=== PATIENT | female | born 1995 | race Caucasian/White ===

== ENCOUNTER → 2017-01-12 | Outpatient (CLI) | payer BC, OTHER ==
[~2017-01-12] VITALS: Ht 170.2 cm; Wt 62.0 kg
[~2017-01-12] MED LIST: PRENATAL TABLE1 EAC3 PO
[2017-01-12 10:45] VITALS: BP 111/56
== END | disposition home or self-care (01) ==
LOC: IVINF 10:00
DX: Z31.82 Encounter for Rh incompatibility status (principal); Z3A.28 28 weeks gestation of pregnancy
CPT/HCPCS: 96372; J2790

== ENCOUNTER 2017-03-25 10:18 | Inpatient (IN) | payer BC, OTHER ==
[~2017-03-25] VITALS: Ht 167.6 cm; Wt 67.5 kg
[2017-03-25 10:42] VITALS: BP 123/76
[2017-03-25 11:43] LABS: EOSINOPHIL (%) 0.4 % (0-5); EOSINOPHIL COUNT 0.1 K/uL (0-0.3); HEMATOCRIT 32.7 % (36.0-46.0); IMMATURE GRANULOCYTE (%) 0.5 % (0.0-0.7); IMMATURE GRANULOCYTE COUNT 0.1 K/uL; INSTRUMENT ABS NEUTROPHIL CT 9.4 K/uL; LYMPHOCYTE COUNT 1.5 K/uL (1.0-2.8); MCH 28.9 PG (29.0-34.0); MCHC 33.3 G/DL (30.0-36.0); MCV 86.7 FL (83-99); MEAN PLAT.VOLUME 10.4 uM^3 (9.5-12.4); MONOCYTE (%) 9.6 % (3-12); MONOCYTE COUNT 1.2 K/uL (0-0.8); NEUTROPHIL (%) 77.3 % (45-76); NEUTROPHIL COUNT 9.4 K/uL (1.8-6.4); PLATELET COUNT 254 K/uL (156-360); RBC DIS.WIDTH-CV 12.6 % (11.8-14.6); RED BLOOD COUNT 3.77 M/uL (3.80-5.20); WHITE BLOOD COUNT 12.1 K/uL (4.1-10.2)
[2017-03-25 14:39] VITALS: BP 111/69
[2017-03-25 15:51] VITALS: BP 118/63
[2017-03-25 17:36] VITALS: BP 118/56
[2017-03-25 22:29] VITALS: BP 122/75
[2017-03-26 05:36] LABS: EOSINOPHIL (%) 1.5 % (0-5); EOSINOPHIL COUNT 0.2 K/uL (0-0.3); HEMATOCRIT 28.8 % (36.0-46.0); IMMATURE GRANULOCYTE (%) 0.3 % (0.0-0.7); INSTRUMENT ABS NEUTROPHIL CT 6.3 K/uL; MCH 28.4 PG (29.0-34.0); MCHC 32.6 G/DL (30.0-36.0); MEAN PLAT.VOLUME 10.7 uM^3 (9.5-12.4); MONOCYTE (%) 12.6 % (3-12); MONOCYTE COUNT 1.2 K/uL (0-0.8); NEUTROPHIL (%) 64.6 % (45-76); NEUTROPHIL COUNT 6.3 K/uL (1.8-6.4); PLATELET COUNT 212 K/uL (156-360); RBC DIS.WIDTH-CV 12.6 % (11.8-14.6); RBC DIS.WIDTH-SD 40.2 % (39-53); RED BLOOD COUNT 3.31 M/uL (3.80-5.20); WHITE BLOOD COUNT 9.7 K/uL (4.1-10.2)
[2017-03-26 07:43] VITALS: BP 115/61
[2017-03-26 11:39] VITALS: BP 120/66
[2017-03-26 15:30] VITALS: BP 120/65
[2017-03-26 16:19] VITALS: BP 128/70
[2017-03-26 22:26] VITALS: BP 132/66
[2017-03-27 03:00] VITALS: BP 133/70
[2017-03-27 07:33] VITALS: BP 128/69
[2017-03-27 11:32] VITALS: BP 123/65
[2017-03-27 14:48] VITALS: BP 118/65
[2017-03-27 23:00] VITALS: BP 126/65
[2017-03-28 07:04] VITALS: BP 114/69
[2017-03-28] MEDS ORDERED: CHROMAGEN,1 CAPSULE PO (10:07)
[2017-03-28] MEDS ORDERED: IBUPROFEN800 MG PO (10:07)
[2017-03-28] MEDS ORDERED: ENDOCET 5-3251 EACH PO (10:07)
== END 2017-03-28 15:05 | disposition home or self-care (01) | DRG 765 ==
LOC: LDRP-OP 10:18 → 2WEST 10:19
PROVIDERS: Obstetrics & Gynecology Obstetrics
PROC: 10D00Z1 Extraction of Products of Conception, Low, Open Approach (ICD-10-PCS; principal; 2017-03-25)
DX: O32.1XX0 Maternal care for breech presentation, not applicable or unspecified (principal); O69.82X0 Labor and delivery complicated by other cord entanglement, without compression, not applicable or unspecified; O99.02 Anemia complicating childbirth; D62 Acute posthemorrhagic anemia; Z3A.37 37 weeks gestation of pregnancy; Z37.0 Single live birth
CPT/HCPCS: 83030; 85025; 86870; 86880; 86900; 86901; 86905; 86920; J0131; J0690; J1885; J2274; J2405; J2590; J2790; J3010; J7050; J7120